=== PATIENT | male | born 1965 | race Caucasian/White ===

== ENCOUNTER 2019-09-14 12:40 | Emergency (ER) | payer BC ==
[~2019-09-14] VITALS: Ht 167.6 cm; Wt 82.1 kg
[2019-09-14 12:49] VITALS: Ht 167.6 cm; Wt 82.1 kg
[2019-09-14 14:49] LABS: BASOPHIL % 0.5 % (0-2); PLATELET COUNT 251 x10^3mcL (130-400); RED CELL DISTRIBUTION WIDTH 13.3 % (11.5-14.5)
[2019-09-14 14:56] LABS: CARBON DIOXIDE 26.7 mmol/L (21-32); CHLORIDE SERUM 101 mmol/L (98-107); GFR1 > 60 mL/min; GLUCOSE SERUM 108 mg/dL (74-106); POTASSIUM SERUM 4.4 mmol/L (3.5-5.1); SODIUM SERUM 137 mmol/L (136-145)
[2019-09-14 15:01] LABS: ALBUMIN 3.5 g/dL (3.4-5.0); ALKALINE PHOSPHATASE 159 U/L (46-116); ALT/SGPT 128 U/L (16-63); AST/SGOT 59 U/L (15-37); BILIRUBIN TOTAL 1.3 mg/dL (0.20-1.00); TOTAL PROTEIN, SERUM 7.9 g/dL (6.4-8.2)
[2019-09-14 15:27] LABS: microscopic required? YES; urine erythrocyte 2+ (NEGATIVE)
[2019-09-14 17:36] VITALS: BP 105/70
== END 2019-09-14 17:36 | disposition home or self-care (01) ==
LOC: ED 12:40
PROVIDERS: Student in an Organized Health Care Education/Training Program
DX: N39.0 Urinary tract infection, site not specified (principal); R31.9 Hematuria, unspecified
CPT/HCPCS: 87491; 87591; J0696